=== PATIENT | female | born 1985 | race Caucasian/White ===

== ENCOUNTER → 2021-08-08 | Outpatient (CLI) | payer OTHER ==
[~2021-08-08] MED LIST: ALL DAY ALLERGY10 M2 PO; AUGMENTIN 875-1 EACH PO; CIPRO500 MG PO; ELIMITE 5% CREA60 GM TOP; FLAGYL500 MG PO; HYDROXYZINE HCL25 MG PO; IBUPROFEN600 MG PO; KEFLEX CAP 500500 MG PO; LEVAQUIN500 MG PO; LODINE CAP 300300 MG PO; MACROBID 100 M100 MG PO; MIRALAX17 GM PO; NAPROSYN500 MG PO; NORCO 7.5-3251 EACH PO; ONDANSETRON ODT4 MG PO; PREDNISONE 50 M50 MG PO; PREDNISONE20 MG PO; PROCTOCREAM-HC30 G1 TP; VISTARIL25 MG PO; ZOFRAN ODT 4 MG4 MG SL
== END ==
LOC: MAMO 08:20
DX: Z12.31 Encounter for screening mammogram for malignant neoplasm of breast (principal); Z80.3 Family history of malignant neoplasm of breast
CPT/HCPCS: 77063; 77067

== ENCOUNTER → 2021-08-22 | Outpatient (CLI) | payer OTHER ==
[2021-08-22 16:06] LABS: HEMOGLOBIN 14.4 gm/dl (12.3-15.3); RED BLOOD COUNT 4.91 M/UL (4.00-5.10); WHITE BLOOD COUNT 7.4 K/UL (4.5-11.0)
[2021-08-22 16:25] LABS: BUN/CREATININE RATIO 11 (0-10)
== END ==
LOC: LAB 14:58
PROVIDERS: Surgery
DX: K21.9 Gastro-esophageal reflux disease without esophagitis (principal)
CPT/HCPCS: 36415; 80048; 85025